=== PATIENT | male | born 2000 | race Two or more races ===

== ENCOUNTER 2023-03-24 11:32 | Emergency (ER) | payer SELFPAY ==
[~2023-03-24] VITALS: Ht 195.6 cm; Wt 112.6 kg
[2023-03-24] MEDS ORDERED: KETOROLAC TROMETH 60MG/2ML VIAL IM ONE (12:45)
[2023-03-24 15:54] VITALS: BP 136/53
[2023-03-25] MEDS ORDERED: IBU600T PO (11:10)
== END 2023-03-24 16:08 | disposition home or self-care (01) ==
LOC: ER 11:42
DX: S62.606A Fracture of unspecified phalanx of right little finger, initial encounter for closed fracture (principal); X58.XXXA Exposure to other specified factors, initial encounter; Y93.89 Activity, other specified; Y92.89 Other specified places as the place of occurrence of the external cause; Y99.8 Other external cause status
CPT/HCPCS: 29130; 73130; 96372; 99283; J1885